=== PATIENT | female | born 1950 | race Caucasian/White ===

== ENCOUNTER 2024-02-29 15:08 | Emergency (ER) | payer MEDICARE, MEDICAID, SELFPAY ==
[2024-02-29 15:09] VITALS: BP 120/65; PULSE 89; RESP 17; TEMP 36.7; O2SAT 97
[2024-02-29 15:10] VITALS: BMI 31.7
--- NOTE | 2024-02-29 15:17 | EDNOTE_ITS ---
<Statement entered by Siobhan Brown MD - 02/29/24 22:04> As co-signing physician, I was present and available for consult prn. I concur with the plan and care as documented by the midlevel provider. ED General RME/HPI General Chief complaint: Seizure Stated complaint: SEIZURE Time Seen by Provider: 02/29/24 15:16 Arrival date/time: 02/29/24 15:08 CC: Seizure, with seizure disorder HPI patient presents to the ER via EMS reports stable vital signs and a family members noticed the patient looked sideways , and thought she was having a seizure. Patient admits that she is noncompliant with her Keppra but all of her other antiseizure medications. Patient denies fever chills chest pain shortness of breath. Patient is not postictal awake alert oriented answering all questions appropriately. Review the medical record show that the patient is currently on Vimpat and Keppra Related Data Home Medications ?Medication ?Instructions ?Recorded ?Confirmed Aspirin Ec * (ECOTRIN *) 81 mg PO QDAY ##0 08/09/16 07/11/20 furosemide 40 mg tablet (Lasix) 40 mg PO QDAY #0 tabs 08/09/16 07/11/20 lacosamide 200 mg tablet (Vimpat) 200 mg PO BID #0 tabs 08/09/16 07/11/20 atorvastatin 40 mg tablet (Lipitor) 80 mg PO HS #0 tabs 01/31/17 07/11/20 cholecalciferol (vitamin D3) 125 5,000 unit PO QDAY 06/09/17 07/11/20 mcg (5,000 unit) tablet (Vitamin D3) nitroglycerin 0.4 mg sublingual 0.4 mg buccal PRN PRN Chest Pain 06/09/17 07/11/20 tablet folic acid 1 mg tablet 1 mg PO QDAY 07/09/20 07/09/20 lacosamide 200 mg tablet (Vimpat) 200 mg PO BID 07/09/20 07/09/20 levetiracetam 500 mg tablet 1,000 mg PO BID 07/09/20 07/09/20 metformin 500 mg tablet 500 mg PO BID 07/09/20 07/09/20 metoprolol succinate 25 mg 25 mg PO QDAY 07/09/20 07/09/20 tablet,extended release 24 hr ranolazine 500 mg tablet,extended 500 mg PO BID 07/09/20 07/09/20 release,12 hr timolol 0.5 % eye drops 1 drp ophthalmic (eye) BID 07/09/20 07/11/20 folic acid 1 mg tablet 1 mg PO QDAY 07/11/20 07/11/20 phenazopyridine 200 mg tablet 400 mg PO BID 07/11/20 07/11/20 ranolazine 500 mg tablet,extended 500 mg PO BID 07/11/20 07/11/20 release,12 hr (Ranexa) Previous Rx's ?Medication ?Instructions ?Recorded nitrofurantoin 100 mg PO BID #30 caps 11/13/17 monohydrate/macrocrystals 100 mg capsule (Macrobid) lacosamide 200 mg tablet (Vimpat) 200 mg PO BID #60 tabs 07/29/21 levetiracetam 500 mg tablet 500 mg PO BID #60 tabs 07/29/21 (Keppra) Allergies Allergy/AdvReac Type Severity Reaction Status Date / Time carbamazepine Allergy Unknown UNKNOWN Verified 07/11/20 07:20 PER PT Penicillins Allergy Unknown UNKNOWN Verified 07/11/20 07:20 phenobarbital Allergy Unknown UNKNOWN Verified 07/11/20 07:20 PER PT primidone Allergy Unknown UNKNOWN Verified 07/11/20 07:20 PER PT divalproex sodium AdvReac Severe I GO Verified 07/11/20 07:20 CRAZY ALTERS MOOD Review of Systems Review of Systems Narrative Review of Systems: GEN: No fever, no chills, no weight loss EYES: No discharge, no visual changes, no pain HEENT: No ear pain, no congestion, no sore throat PULM: No shortness of breath, no cough, no congestion CV: No chest pain, no dyspnea on exertion, no palpitations GI: No nausea, no vomiting, no diarrhea, no pain, no constipation : No frequency, no urgency, no dysuria MUSC/SKEL: No joint pain, no back pain SKIN: No rash PSYCH: No hallucinations, no depression HEME/LYMPH: No easy bleeding or bruising tendencies NEURO: No weakness, no headache Past Medical History Past Medical History NEUROLOGIC: Positive Neurological Disorders, Cerebrovascular Accident, Seizures and Epilepsy CARDIAC: Positive Cardiac Disorders, Cardiac Arrhythmia, Angina, Atherosclerotic Heart Disease, Hypercholesterolemia, Edema and Hypertension; Negative Congestive Heart Failure RESPIRATORY: Negative Chronic Obstructive Pulmonary Disease (COPD) GASTROINTESTINAL: Positive Gastrointestinal Disorders, Gastroesophageal Reflux Disease and Obesity; Negative Hepatitis or Colorectal Cancer GENITOURINARY: Negative Genitourinary Disorders or Renal Disease REPRODUCTIVE: Positive Uterine Prolapse; Negative Breast Cancer, Endometriosis, Pelvic Inflammatory Disease or Previous Pregnancies MUSCULOSKELETAL: Positive Musculoskeletal Disorders, Arthritis, Osteoporosis and Fractures; Negative Bone Cancer or Carpal Tunnel Syndrome ENT: Positive Cataracts and Blind ENDOCRINE: Positive Diabetes Mellitus Type 2; Negative Endocrine Disorders or Diabetes Mellitus Type 1 HEMATOLOGIC: Positive Blood Disorders, Anemia and Clotting Problems PSYCHO/SOCIAL: Positive Psychiatric Problems, Depression, Anxiety and Behavior Problems OTHER HISTORY: Positive Chicken Pox, Measles, Rubella (Azerbaijani Measles) and Pertussis; Negative Falls, Blood Transfusions, Blood Transfusion Reaction, Anesthesia Reactions, Organ Transplant, Chemotherapy, Radiation Therapy, Hyperbaric Therapy, MRSA, VRSA, Vancomycin-Resistant Enterococci, Breast Cancer, Cervical Cancer, Colorectal Cancer, Lung Cancer or Ovarian Cancer Family History FAMILY HISTORY: Positive Family Respiratory Disorders, Family Cardiac Disorders, Family Cancer and Family Surgery; Negative Family Anesthesia Reaction Surgical History SURGICAL: Positive Coronary Stent, Cardiac Catheterization, Angiogram and Neurologic Surgery; Negative Endocrine Surgery, Thyroidectomy, Abdominal Surgery, Nephrectomy, Joint Replacement, Amputation, Open Reduction Internal Fixation, Arthroscopy, Hysterectomy or Organ Transplant Social History SMOKING STATUS: Never smoker SECOND HAND EXPOSURE: No ED Exam Narrative Physical exam: [General: Obese not in any acute distress Head normocephalic HEENT: Eyes pupils are PERRLA patient has a right eye disconjugate gaze left eye tracks appropriately. All other subsystems HEENT are within acceptable limits Neck is supple nontender Chest equal chest rise nontender to palpation Respiratory: Clear to auscultation no wheezes crackles or rubs CV: Rate rhythm is regular no murmurs rubs or clicks Abdomen is distended secondary to body habitus soft nontender no masses positive bowel sounds all 4 quadrants Back: No CVA tenderness no spinous process tenderness from cervical spine thoracic and lumbar spine Skin: Intact no petechiae rash induration ulceration or crepitus Extremities: Moving all extremity against resistance cap refill less than 2 seconds neurosensory intact Neuro: Awake alert oriented x3 Glascow coma 15 no focal deficits] Course Quality Measures none Orders Category Date Time Status Saline [Insert IV] NOW Care 02/29/24 15:16 Active CBC Stat Lab 02/29/24 16:08 Completed CMP [Comprehensive Metabolic Panel] Stat Lab 02/29/24 17:12 Completed Urinalysis Stat Lab 02/29/24 18:22 Completed levETIRAcetam INJ [Keppra Inj] Med 02/29/24 15:16 Discontinued 1,000 mg IVP X1 ONE Vital Signs Vital signs: Vital Signs Temperature 98.0 F 02/29/24 15:09 Pulse Rate 89 02/29/24 15:09 Respiratory Rate 17 02/29/24 15:09 Blood Pressure 120/65 02/29/24 15:09 Pulse Oximetry (%) 97 02/29/24 15:09 Oxygen Delivery Method Room Air 02/29/24 15:09 [facility] Patient data External records reviewed:: [facility] previous records and EMS form Clinical information provided by:: patient and EMS Social determinants that could affect healthcare access:: none Patient has the following chronic illnesses:: Seizure disorder hypertension diabetes hyperlipidemia How is presenting disease/condition affected by chronic disease/condition?: e xacerbated by Evaluation data The following diagnostics were reviewed and interpreted by me:: lab results Lab and/or radiology exams considered but not ordered:: CBC shows mild leukocytosis no anemia thrombocytopenia CMP shows no significant electrolyte imbalances renal impairment transaminitis or T. bili elevation Urine is negative Interpretation Summary: Patient has had no deterioration neurologic status nor she had any seizures during admission to the hospital patient be discharged home. Medications Medications considered but not ordered:: None Medication administrations:: Medication Administration History Discontinued Medications Levetiracetam (Levetiracetam Inj 100 Mg/Ml Vial 5ml) 1,000 mg IVP X1 ONE Stop: 02/29/24 15:17 Last Admin: 02/29/24 15:34 Dose: 1,000 mg Documented By: LF None Consultations Consultation(s) initiated? (list below): No Diagnosis Differential Diagnosis ED Complaint MDM: Seizures status epilepticus pseudoseizures Most likely diagnosis given after review of the tests above:: Seizures Admission Indicated Admission indicated?: not indicated Explain why admission is indicated or not indicated:: Stable for discharge Admission Request Was there a request for admission?: No Disposition Plan Disposition Plan: Discharge Discharge Attestation Discharge Attestation: The patient and all family members were given an opportunity to ask questions and understood the discharge instructions. Discharge instructions specifically effects, indications for sooner follow up or return to the emergency department, and the expected course of current diagnosis. Patient condition: Stable Medical Decision Making Differential Diagnosis Differential Diagnosis: Seizures status epilepticus pseudoseizures Lab Data 02/29/24 16:08 02/29/24 17:12 Labs: Lab Results 02/29/24 02/29/24 02/29/24 Range/Units 16:08 17:12 18:22 WBC 14.0 H (3.6-11.0) Thou/mm3 RBC 4.21 (4.00-5.20) Miln/mm3 Hgb 12.5 (12.0-16.0) g/dL Hct 37.5 (36.0-46.0) % MCV 89 (80-100) fL MCH 29.7 (25.0-35.0) pg MCHC 33.3 (31.0-37.0) g/dl RDW Std Deviation 44.5 (36.4-46.3) fL Plt Count 183 (140-440) Thou/mm3 Neut % (Auto) 71 (37-80) % Lymph % (Auto) 16 (10-50) % Randall % (Auto) 10 (0-12) % Eos % (Auto) 2 (0-10) % Baso % (Auto) 0 (0-2.5) % Neut # (Auto) 9.9 H (1.8-7.7) Thou/mm3 Lymph # (Auto) 2.2 (1.0-4.8) Thou/mm3 Randall # (Auto) 1.4 H (0.0-0.8) Thou/mm3 Eos # (Auto) 0.3 (0.0-0.5) Thou/mm3 Baso # (Auto) 0.1 (0.0-0.2) Thou/mm3 Immature Gran # (Auto) 0.06 H (0.00-0.00) Thou/mm3 Absolute Nucleated RBC 0.00 (0.00-0.00) Thou/mm3 Immature Gran % 0 (0-0) % Nucleated RBC % 0 (0) /100 WBC Sodium 138 (136-145) mMol/L Potassium 3.8 (3.4-5.1) mMol/L Chloride 103 (98-107) mMol/L Carbon Dioxide 26.8 (20.0-31.0) mMol/L Anion Gap 8 (7-16) BUN 11 (9-23) mg/dL Creatinine 0.8 (0.6-1.3) mg/dL Estim Creat Clear Calc 63.7 (>60) mL/min eGFR > 60 (60 - ) See Note BUN/Creatinine Ratio 14 (12-20) Ratio Glucose 86 (74-106) mg/dL Calculated Osmolality 274 L (275-295) Calcium 9.3 (8.3-10.6) mg/dL Corrected Calcium 9.3 (8.5-10.1) mg/dL Total Bilirubin 0.5 (0.3-1.2) mg/dL AST 22 (0-34) U/L ALT 16 (10-49) U/L Alkaline Phosphatase 160 H (46-116) U/L Total Protein 7.3 (5.7-8.2) gm/dL Albumin 4.3 (3.4-4.8) gm/dL Globulin 3.0 (2.3-3.5) gm/dL Albumin/Globulin Ratio 1.4 (1.2-2.2) Ur Collection Type Clean Catch Urine Color Colorless A (Lt Yel-Yel) Urine Clarity Clear (Clear/Hazy) Urine pH 6.5 (5.0-7.0) Ur Specific Pandora 1.007 (1.001-1.035) Urine Protein Negative (Neg - Trace) Urine Glucose (UA) Negative (Negative) Urine Ketones Negative (Negative) Urine Blood Negative (Negative) Urine Nitrite Negative (Negative) Urine Bilirubin Negative (Negative) Urine Urobilinogen (Auto) Negative (0.0-1.0) mg/dL Ur Leukocyte Esterase Positive (Negative) Urine RBC 3 (0-3) /hpf Urine WBC 3 (0-5) /hpf Ur Squamous Epith Cells 2 (0-5) /hpf Urine Bacteria Rare (None) Discharge Plan Plan Patient Disposition: HOME (Self Care) Patient condition on transfer: Stable Prescriptions/Referrals Prescriptions/Med Rec: No Action Aspirin Ec * (ECOTRIN *) 81 MG TABLET.DR 81 mg PO QDAY Qty: 0 furosemide [Lasix] 40 MG tablet 40 mg PO QDAY Qty: 0 Vimpat 200 MG tablet 200 mg PO BID Qty: 0 atorvastatin [Lipitor] 40 MG tablet 80 mg PO HS Qty: 0 nitroglycerin 0.4 mg Tablet, Sublingual 0.4 mg buccal PRN PRN (Reason: Chest Pain) cholecalciferol (vitamin D3) [Vitamin D3] 5,000 unit Tablet 5,000 unit PO QDAY nitrofurantoin monohyd/m-cryst [Macrobid] 100 mg capsule 100 mg PO BID Qty: 30 0RF Rx Instructions: must administer with a meal/food metformin 500 mg Tablet 500 mg PO BID Hold Instructions: Resume on 07/13/20. levetiracetam 500 mg Tablet 1,000 mg PO BID timolol 0.5 % Drops 1 drp OPHTHALMIC (EYE) BID folic acid 1 mg Tablet 1 mg PO QDAY metoprolol succinate 25 mg Tablet Extended Release 24 Hr 25 mg PO QDAY ranolazine 500 mg Tablet Extended Release 12 Hr 500 mg PO BID Vimpat 200 mg Tablet 200 mg PO BID folic acid 1 mg Tablet 1 mg PO QDAY phenazopyridine 200 mg Tablet 400 mg PO BID ranolazine [Ranexa] 500 mg Tablet Extended Release 12 Hr 500 mg PO BID lacosamide [Vimpat] 200 mg tablet 200 mg PO BID Qty: 60 0RF levetiracetam [Keppra] 500 mg tablet 500 mg PO BID Qty: 60 0RF Referrals: Lulu Soriano PA-C [Primary Care Provider] - In 1 week Problem List Clinical Impression: Seizure Patient/Caregiver Discharge Instructions Education Materials: ED Seizure New Onset Unknown ... Print Language: Frisian Stand Alone Forms: Yenny Award Info., Patient Portal Info Letter ANDRIY/ARELI Supervising Physician GLENN Supervising Physician: Pete Ruth ENP
[2024-02-29] MEDS: levETIRAcetam INJ 100 MG/ML VIAL 5ML 1000 MG IVP (15:34)
--- NOTE | 2024-02-29 15:42 | PC.NURSE ---
PATIENT CAME IN VIA EMS FOR SEIZURE LIKE ACTIVITY. NO TRAUMA. PER CARE PROVIDER PT GOT STIFF AND EYES WERE ROLLING BACK. LASTED LESS THAN A MIN. PT DID NOT FALL. DENIES PAIN AT THIS TIME. PT HAD BEEN NON COMPLIANT WITH SEIZURE MEDS BECAUSE SHE IS WANTING TO GET OFF OF THEM. AT THIS TIME NO DISTRESS NOTED, IVL STARTED. LAB AT BEDSIDE FOR BLOOD DRAW
[2024-02-29 16:19] LABS: Basophils # (Auto) 0.1 Thou/mm3 (0.0-0.2); Basophils % (Auto) 0 % (0-2.5); Eosinophils # (Auto) 0.3 Thou/mm3 (0.0-0.5); Eosinophils % (Auto) 2 % (0-10); Hematocrit 37.5 % (36.0-46.0); Hemoglobin 12.5 g/dL (12.0-16.0); Immature Granulocytes % (Auto) 0 % (0-0); Immature Granulocytes Auto 0.06 Thou/mm3 (0.00-0.00); Lymphocytes # (Auto) 2.2 Thou/mm3 (1.0-4.8); Lymphocytes % (Auto) 16 % (10-50); Mean Corpuscular HGB Conc 33.3 g/dl (31.0-37.0); Mean Corpuscular Hemoglobin 29.7 pg (25.0-35.0); Mean Corpuscular Volume 89 fL (80-100); Monocytes # (Auto) 1.4 Thou/mm3 (0.0-0.8); Monocytes % (Auto) 10 % (0-12); Neutrophils # (Auto) 9.9 Thou/mm3 (1.8-7.7); Neutrophils % (Auto) 71 % (37-80); Nucleated Red Blood Cell % 0 /100 WBC (0); Platelet Count 183 Thou/mm3 (140-440); RDW Standard Deviation 44.5 fL (36.4-46.3); Red Blood Count 4.21 Miln/mm3 (4.00-5.20)
[2024-02-29 17:19] VITALS: BP 114/56; PULSE 101; RESP 18; TEMP 36.7; O2SAT 97
[2024-02-29 17:37] LABS: Alanine Aminotransferase 16 U/L (10-49); Albumin, Serum 4.3 gm/dL (3.4-4.8); Albumin/Globulin Ratio 1.4 (1.2-2.2); Alkaline Phosphatase 160 U/L (46-116); Anion Gap 8 (7-16); Aspartate Amino Transferase 22 U/L (0-34); BUN/Creatinine Ratio 14 Ratio (12-20); Bilirubin,Total 0.5 mg/dL (0.3-1.2); Blood Urea Nitrogen 11 mg/dL (9-23); Calcium 9.3 mg/dL (8.3-10.6); Calcium (Corrected) 9.3 mg/dL (8.5-10.1); Carbon Dioxide 26.8 mMol/L (20.0-31.0); Chloride 103 mMol/L (98-107); Creatinine (Component) 0.8 mg/dL (0.6-1.3); Estimated Creatinine Clearance 63.7 mL/min (>60); Glucose 86 mg/dL (74-106); Osmolality,Calculated 274 (275-295); Potassium 3.8 mMol/L (3.4-5.1); Sodium 138 mMol/L (136-145); Total Protein 7.3 gm/dL (5.7-8.2); eGFR > 60 See Note
[2024-02-29 18:31] LABS: Collection Type, Urine Clean Catch
[2024-02-29 18:42] LABS: Bacteria,Urine Rare; Bilirubin,Urine Negative (Negative); Blood,Urine Negative (Negative); Clarity,Urine Clear (Clear/Hazy); Color,Urine Colorless (Lt Yel-Yel); Glucose, Urine Negative (Negative); Ketones,Urine Negative (Negative); Leukocyte Esterase,Urine Positive (Negative); Nitrite,Urine Negative (Negative); PH,Urine 6.5 (5.0-7.0); Protein,Urine Negative (Neg - Trace); RBC,Urine 3 /hpf (0-3); Specific Gravity,Urine 1.007 (1.001-1.035); Squamous Epithelial Cell,Urine 2 /hpf (0-5); Urobilinogen,Urine Negative mg/dL (0.0-1.0); WBC,Urine 3 /hpf (0-5)
[2024-02-29 19:26] VITALS: PULSE 90; RESP 18; O2SAT 97
== END 2024-02-29 19:29 | disposition home or self-care (01) ==
PROVIDERS: Registered Nurse General Practice; Emergency Provider Emergency Medicine; PCP Physician Assistant
DX: R56.9 Unspecified convulsions (principal)
CPT/HCPCS: 36415; 80053; 81001; 85025; 96374; 99284; J1953